=== PATIENT | male | born 1940 | race Caucasian/White ===

== ENCOUNTER → 2023-03-12 12:07 | Outpatient (CLI) | payer MEDICARE, SELFPAY ==
--- NOTE | 2023-03-12 | DI.MRI.S_ITS ---
PROCEDURE: MR LUMBAR SPINE WO CON INDICATIONS: Spinal stenosis, lumbar region TECHNIQUE: Noncontrast sagittal T1 spin echo and T2 fast echo, sagittal STIR, and T2 fast spin echo through the lumbar spine. In cases with scoliosis, additional coronal T2 fast spin echo may be performed. COMPARISON: [facility] Outside Film, CT, CT LUMBAR SPINE WITHOUT CONTRAST, 11/05/2021, 8:09. [facility] [place], CR, XR LUMBAR SPINE 2 OR 3 VIEWS, 02/17/2023, 16:25. [facility] Outside Film, MR, MR LUMBAR SPINE WITHOUT CONTRAST, 07/06/2021, 10:40. FINDINGS: Image quality: Excellent. Alignment and Curvature: There had been remote L4 laminectomy. After the previous MRI and CT, there was posterior lateral allyson and pedicle screw fixation of L4-L5 with bilateral pedicle screws at L4 and L5, as well as interbody spacer placement. 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 Anterolisthesis of L4 on L5 measures 7 mm. Bone Marrow: Marrow is of normal overall signal. No acute vertebral body compression fractures. Spinal Cord: Conus medullaris terminates at the T12-L1 level. Visualized cord demonstrates normal signal and size. Paraspinous Soft Tissues: No paravertebral masses. T12-L1: No canal stenosis or foraminal stenosis. L1-L2: No canal stenosis or foraminal stenosis. L2-L3: Disc bulge. Mild facet hypertrophy. Epidural lipomatosis. [id number] canal stenosis, in part secondary to epidural lipomatosis. L3-L4: Disc bulge. Facet and ligament hypertrophy. At least moderate canal stenosis. This is slightly progressed compared to the previous studies. L4-L5: Remote posterior decompressive laminectomy. Interval posterior lateral allyson and pedicle screw fixation and resection of bilateral facet joint cyst. There has been resolution of canal stenosis. There is moderate to severe right foraminal narrowing with a degree of right foraminal L4 nerve root impingement. There is no left foraminal narrowing. L5-S1: Disc bulge. No canal stenosis or foraminal stenosis. Mild facet hypertrophy. IMPRESSION: 1. Interval Re-surgery at L4-L5, with resection of facet joint cysts and fusion. There is no residual canal stenosis. There is moderate to severe right foraminal narrowing with right foraminal L4 nerve root impingement. 2. Canal stenosis is mild to moderate at L2-L3 and at least moderate at L3-L4. It is progressive. Dictated by: Juan Manuel Galvez M.D. on 03/14/2023 at 11:27 Approved by: Juan Manuel Galvez M.D. on 03/14/2023 at 11:41
== END ==
PROVIDERS: PCP Student in an Organized Health Care Education/Training Program; Referring Provider Physical Medicine & Rehabilitation; Visit Provider Physical Medicine & Rehabilitation
DX: M48.062 Spinal stenosis, lumbar region with neurogenic claudication (principal); Z98.1 Arthrodesis status
CPT/HCPCS: 72148